=== PATIENT | male | born 2000 | race Caucasian/White ===

== ENCOUNTER 2022-01-24 20:29 | Emergency (ER) | payer SELFPAY ==
[~2022-01-24] VITALS: Ht 195.6 cm; Wt 77.3 kg
[2022-01-24 20:36] VITALS: TEMP 97.1
[2022-01-24 21:45] VITALS: BP 128/74; PULSE 68
== END 2022-01-24 21:45 | disposition home or self-care (01) ==
LOC: COL.ER 20:29
DX: S90.812A Abrasion, left foot, initial encounter (principal); W22.8XXA Striking against or struck by other objects, initial encounter; Z28.310 Unvaccinated for COVID-19

== ENCOUNTER 2022-04-11 13:44 | Emergency (ER) | payer SELFPAY ==
[~2022-04-11] VITALS: Ht 193 cm; Wt 81.8 kg
[2022-04-11 18:01] VITALS: TEMP 98.8
[2022-04-11 18:34] VITALS: BP 136/81; PULSE 75
== END 2022-04-11 18:45 | disposition home or self-care (01) ==
LOC: COL.ER 13:44
DX: T18.128A Food in esophagus causing other injury, initial encounter (principal); Z28.310 Unvaccinated for COVID-19
CPT/HCPCS: J0330; J1100; J1610; J2405; J2704; J7030